=== PATIENT | female | born 1970 | race Caucasian/White ===

== ENCOUNTER 2016-11-09 21:22 | Emergency (ER) | payer OTHER ==
[~2016-11-09] VITALS: Ht 167.6 cm; Wt 51.4 kg
[~2016-11-09 21:22] MED LIST: 12 HOUR DECONG120 M1 PO; BACTRIM,SEPT1 TABLET PO; FIORICET,ESG1 TABLET PO; IBUPROFEN200 M1 PO; LICE TREATMENT118 ML TP; MOTRIN400 MG PO; MOTRIN800 MG PO; NAPROSYN500 MG PO; PREDNISONE20 MG PO; PROAIR HFA8.5 GM IH; SEROQUEL100 MG PO; TRAMADOL PO; VALIUM2 MG PO; VENTOLIN HFA18 GM IH; ZITHROMAX250 MG PO; ZOFRAN ODT4 MG PO
[2016-11-09] MEDS ORDERED: TESSALON PERLE100 MG PO (23:23)
[2016-11-09 23:30] VITALS: BP 119/74
== END 2016-11-09 23:44 | disposition home or self-care (01) ==
LOC: EME 21:22
DX: R51 Headache (principal); J40 Bronchitis, not specified as acute or chronic; F17.200 Nicotine dependence, unspecified, uncomplicated
CPT/HCPCS: 99281; 99285; J0780; J1885; J7030

== ENCOUNTER 2017-04-12 20:12 | Emergency (ER) | payer OTHER ==
[~2017-04-12] VITALS: Ht 175.3 cm; Wt 50.4 kg
[~2017-04-12 20:12] MED LIST changes: +TESSALON PERLE100 MG PO
[2017-04-12] MEDS ORDERED: ULTRAM50 MG PO (23:39)
[2017-04-12 23:45] VITALS: BP 132/72
[2017-04-13] MEDS ORDERED: PERCOCET 5/31 TABLET PO (16:17)
== END 2017-04-12 23:47 | disposition home or self-care (01) ==
LOC: EME 20:12
PROC: 2W3CX1Z Immobilization of Right Lower Arm using Splint (ICD-10-PCS; principal; 2017-04-12)
DX: M25.532 Pain in left wrist (principal); M54.2 Cervicalgia; M25.512 Pain in left shoulder; W10.9XXA Fall (on) (from) unspecified stairs and steps, initial encounter; F17.200 Nicotine dependence, unspecified, uncomplicated
CPT/HCPCS: 72040; 73030; 73090; 99281; 99284

== ENCOUNTER 2017-04-13 15:49 | Emergency (ER) | payer OTHER ==
[~2017-04-13] VITALS: Ht 167.6 cm; Wt 49.0 kg
[~2017-04-13 15:49] MED LIST changes: +ULTRAM50 MG PO
[2017-04-13] MEDS ORDERED: PERCOCET 5/31 TABLET PO (16:17)
[2017-04-13 16:59] VITALS: BP 110/72
== END 2017-04-13 17:01 | disposition home or self-care (01) ==
LOC: EME 15:49
DX: S62.001A Unspecified fracture of navicular [scaphoid] bone of right wrist, initial encounter for closed fracture (principal); W19.XXXA Unspecified fall, initial encounter; F17.200 Nicotine dependence, unspecified, uncomplicated
CPT/HCPCS: 81003; 99281; 99283

== ENCOUNTER 2017-04-22 17:42 | Emergency (ER) | payer OTHER ==
[~2017-04-22] VITALS: Ht 167.6 cm; Wt 48.9 kg
[~2017-04-22 17:42] MED LIST changes: +PERCOCET 5/31 TABLET PO
[2017-04-22 18:14] VITALS: BP 158/97
== END 2017-04-22 19:05 | disposition left against medical advice (07) ==
LOC: EME 17:42
DX: M79.601 Pain in right arm (principal); Z53.21 Procedure and treatment not carried out due to patient leaving prior to being seen by health care provider

== ENCOUNTER 2017-11-10 07:27 | Emergency (ER) | payer OTHER ==
[~2017-11-10] VITALS: Ht 162.6 cm; Wt 49.2 kg
[2017-11-10 08:08] LABS: HEMATOCRIT 36.3 % (36.0-46.0); HEMOGLOBIN 12.6 G/DL (11.9-15.5); MCH 30.5 PG (29.0-34.0); MCHC 34.7 G/DL (30.0-36.0); MCV 87.9 FL (83-99); PLATELET COUNT 267 K/uL (156-360); RBC DIS.WIDTH-CV 13.2 % (11.8-14.6); RBC DIS.WIDTH-SD 42.9 % (39-53); RED BLOOD COUNT 4.13 M/uL (3.80-5.20); WHITE BLOOD COUNT 17.9 K/uL (4.1-10.2)
[2017-11-10 09:06] LABS: CHLORIDE 104 MEQ/L (99-109); CREATININE 0.9 MG/DL (0.6-1.3); GFR ESTIMATE (CALCULATED) > 59 mL/min/; GLUCOSE 91 mg/dL (70-99); POTASSIUM 3.7 MEQ/L (3.7-5.4); SODIUM 135 MEQ/L (136-147); UREA NITROGEN (BUN) 10 mg/dL (9-23)
[2017-11-10] MEDS ORDERED: MUCINEX1200 MG PO (09:14)
[2017-11-10] MEDS ORDERED: VENTOLIN HFA18 GM IH (09:14)
[2017-11-10] MEDS ORDERED: TESSALON200 MG PO (09:14)
[2017-11-10 09:47] VITALS: BP 114/64
== END 2017-11-10 09:49 | disposition home or self-care (01) ==
LOC: EME 07:27
PROVIDERS: Nurse Practitioner Family
DX: J06.9 Acute upper respiratory infection, unspecified (principal); F31.9 Bipolar disorder, unspecified; F41.9 Anxiety disorder, unspecified; F32.9 Major depressive disorder, single episode, unspecified; F17.200 Nicotine dependence, unspecified, uncomplicated
CPT/HCPCS: 71046; 80048; 85027; 99281; 99283